=== PATIENT | female | born 1945 | race Caucasian/White ===

== ENCOUNTER 2020-11-02 08:53 | Emergency (ER) | payer OTHER, SELFPAY ==
[2020-11-02 09:24] VITALS: BP 166/109; PULSE 62; RESP 14; TEMP 36.2; O2SAT 98; BMI 33.9
[2020-11-02 09:27] VITALS: O2SAT 97
--- NOTE | 2020-11-02 09:33 | XR_ITS ---
WS: [id number] Left knee, 3 views, 11/02/2020 Clinical Data: injury Comparison: None. Findings: No fractures or dislocations are seen. There is medial joint compartment narrowing with small spurs o f the medial femoral condyle and medial tibial plateau.. The patella shows mild posterior irregularit y. The soft tissues are unremarkable. 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 Kellgren-Arvin Classification: grade 2 (minimal): definite osteophytes and p ossible joint space narrowing
--- NOTE | 2020-11-02 10:34 | W.ED.EXTPRO ---
HPI - Extremity Problem General: Chief complaint: Extremity Injury, Lower Stated complaint: Fall,L knee pain Time Seen by Provider: 11/02/20 09:24 Source: patient Mode of arrival: ambulatory Limitations: no limitations History of Present Illness: HPI Narrative: 75 yo female patient presents to ER with left knee pain. Pt states she was here at hospital picking up and tripped and landed on her left knee. Pt states she has some minor pain but wanted to have it checked while here. pt did not hit head or fall to ground. pt is not on blood thinners. Associated symptoms: Deny chest pain, fever(s) or rash Review of Systems Const: Denies: fever(s), chills, body aches, change in appetite, change in weight, fatigue, malaise or diaphoresis Eyes: Denies: change in vision, blurry vision, blind spots, photophobia, eye discomfort, eye discharge, eye redness, floaters or seeing flashes ENMT: Denies: throat pain, uvular edema, enlarged tonsils, odynophagia, hoarseness, mouth pain, swelling of lips/tongue, oral sores, bleeding gums, dental pain, dry mouth, ear or mastoid pain, ear discharge, change in hearing, tinnitus, disequilibrium, nasal discharge, nasal congestion, post nasal drip or sinus pain Card: Denies: chest pain, palpitations, irregular heart rhythm, edema, swelling of feet/ankles, lightheadedness, syncope, pre-syncope, dyspnea on exertion, orthopnea, leg pain with exertion or acrocyanosis Resp: Denies: dyspnea, productive cough, non-productive cough, wheezing, stridor, pain on inspiration, change in phlegm color, hemoptysis or chest congestion GI: Denies: abdominal pain, nausea, vomiting, hematemesis, dysphagia, diarrhea, constipation, GI cramping, change in bowel habits or rectal pain : Denies: flank pain, difficulty voiding, dysuria, urinary frequency, urinary urgency, urinary hesitancy or hematuria Musc: Reports: extremity pain; Denies: neck pain, back pain, extremity swelling, joint pain, joint swelling, joint redness, joint warmth or deformity Skin/Breast: Denies: rash, pruritus, erythema, sores, new lesions, changes in skin color or dry skin Neuro: Denies: headache(s), numbness in extremities, weakness in extremities, sensory changes, lack of coordination, difficulty walking, frequent falls, dizziness, vertigo, confusion, behavioral changes, Slurred speech present, difficulty communicating thoughts or seizure-like activity Psych: Denies: anxiety, depression, suicidal ideation or homicidal ideation Endo: Denies: polyuria, polydipsia, tired all the time, cold intolerance, excessive sweating, flushing, hot flashes or heat intolerance Harsh/Lymph: Denies: easy bruising, easy bleeding, petechiae, purpura, enlarged lymph nodes or tender lymph nodes All/Imm: Denies: urticaria, throat swelling, tongue swelling, facial swelling, acute wheezing or itchy eyes Physical Exam Const: COMMON NORMALS: no acute distress, average body habitus, patient oriented x3, no limitations, healthy appearing, alert and well nourished HENMT: COMMON NORMALS: normocephalic and atraumatic HEAD & SCALP: normocephalic and atraumatic THROAT: no uvular edema Eye: COMMON NORMALS: Equal, round and reactive pupils present and EOMs intact bilaterally PUPIL: Yes Equal, round and reactive pupils present Neck/C-Spine: COMMON NORMALS: full ROM and no JVD GENERAL: Yes normal visual inspection and Yes trachea midline CERVICAL SPINE: Yes cervical ROM normal Cardio: COMMON NORMALS: no JVD, regular rate and regular rhythm RATE: regular rate RHYTHM: regular rhythm Extremity: COMMON NORMALS: normal to inspection, full ROM, capillary refill normal, no joint enlargement, no clubbing, cyanosis or edema, no calf tenderness and no pedal edema LEFT LOWER EXTREMITY: Yes knee joint Left knee: Yes inspection and Yes neurovascular exam (NVI distally with no calf tenderness) Neuro: COMMON NORMALS: patient oriented x3 SENSORIUM/ORIENTATION: Yes alert Course Vital Signs: Vital signs: Vital Signs Temperature 97.2 F L 11/02/20 09:24 Pulse Rate 62 11/02/20 09:24 Respiratory Rate 14 11/02/20 09:24 Blood Pressure 166/109 11/02/20 09:24 Pulse Oximetry 97 11/02/20 09:27 MDM - Extremity (Nontraumatic) MDM Narrative: Medical decision making narrative: Pt is well appearing non toxic and in no acute distress. Pt xray reveals no acute fracture or dislocation. Pt is NVI distally. Pt placed in lauro wrap and advised to follow up with PCP in 2 weeks if no improvement for possible MRI. Pt did not want anything for pain Discharge Plan Discharge Patient Disposition: Home Clinical Impression: Acute knee pain Qualifiers: Laterality: left Qualified Code(s): M25.562 - Pain in left knee Condition: Stable Discharge Orders: Discharge ED (Routine); Ordered 11/02/20 Ordered By: Noemi Acosta Referrals: Dat Murillo MD [Primary Care Provider] - Discharge Diet: Advance as tolerated Discharge Activity: Increase activity as tolerated Patient Instructions: Opioid Safety Activity Restrictions/Additional Instructions: Please return to the ER with any worsening of pain or any other concerning symptoms. If no improvement follow up with PCP in 2 weeks for possible MRI. Wear lauro wrap as needed Coding Level of Care Code ED Neurophysiologist for Linda Michaud
== END 2020-11-02 10:45 | disposition home or self-care (01) ==
PROVIDERS: Emergency Provider Registered Nurse; PCP Internal Medicine
DX: M25.562 Pain in left knee (principal)
CPT/HCPCS: 73562; 99282

== ENCOUNTER → 2024-01-22 15:37 | Outpatient (BNVA) | payer MEDICARE, OTHER, SELFPAY | PROVIDERS: PCP Internal Medicine; Visit Provider Family Medicine | DX: J02.9 Acute pharyngitis, unspecified (principal); R05.9 Cough, unspecified | CPT/HCPCS: 87071; 87426; 87880 ==

== ENCOUNTER 2024-01-28 04:15 | Emergency (ER) | payer MEDICARE, OTHER, SELFPAY ==
--- NOTE | 2024-01-28 04:24 | ECG_ITS ---
[facility] Test Date: 2024-01-28 Pat Name: Christine Kimble Department: Room: Gender: Female Director Occupational: : 1945 Requested By: Binh Mueller Order Number: [id number] Jeimy MD: Ck Dubois M.D. Measurements Intervals Empire Rate: 58 P: 67 TN: 157 QRS: 91 QRSD: 132 T: 55 QT: 440 QTc: 435 Interpretive Statements SINUS BRADYCARDIA RIGHT BUNDLE BRANCH BLOCK [120+ ms QRS DURATION, UPRIGHT V1, 40+ ms S IN I/aVL/V4/V5/V6] Compared to ECG 05/07/2017 10:41:40 No significant changes Electronically Signed On 01-28-2024 7:56:36 CDT by Ck Dubois M.D. [id number]
[2024-01-28 04:28] VITALS: BP 242/85; PULSE 58; RESP 18; TEMP 36.5; O2SAT 95; BMI 31.0
--- NOTE | 2024-01-28 04:37 | XRR_ITS ---
PROCEDURE INFORMATION: Exam: XR Chest Exam date and time: 01/28/2024 4:54 AM Age: 78 years old Clinical indication: Shortness of breath; Additional info: SOB TECHNIQUE: Imaging protocol: Radiologic exam of the chest. Views: 1 view. COMPARISON: CR XR chest 2V* [id number] 10/25/2018 9:44 AM FINDINGS: Lungs: Unremarkable. No consolidation. Pleural spaces: Unremarkable. No pleural effusion. No pneumothorax. Heart/Mediastinum: Unremarkable. No cardiomegaly. Bones/joints: Unremarkable. XR/XR chest 1V portable [id number] IMPRESSION: No acute findings.
[2024-01-28 04:39] VITALS: BP 224/114; PULSE 62; RESP 20; O2SAT 94
[2024-01-28 04:53] VITALS: BP 234/103
[2024-01-28] MEDS: cloNIDine 0.1 mg Tablet 0.2 MG PO (04:53)
--- NOTE | 2024-01-28 04:55 | ED_ITS ---
Documented by User: Binh Mueller DO 01/28/24 04:57 HPI - SOB/Dyspnea 2 General: Chief Complaint: Upper Respiratory Infection Stated Complaint: cough SOB cant sleep Time Seen by Provider: 01/28/24 04:27 History of Present Illness: HPI Narrative: Patient presents to the ER with a croupy cough and shortness of breath. She had a croupy cough ever since 01/18/2024 patient said she was seen at a clinic and they are diagnosed with an ear infection and had a sore throat placed on a Z-Indio and cough syrup. She said she was getting better while on a Z-Indio but after she finished that she started wheezing and coughing up phlegm. Patient says she is having a hard time sleeping especially lying flat due to all the excess phlegm. Upon arrival patient saturation was 95% on room air. Patient appeared in no acute distress and nontoxic. However her blood pressure was 242/85. Related Data Previous Rx's Medication Instructions Recorded azithromycin 250 mg tablet See Rx Instructions PO .COMPLEX #6 01/22/24 (Zithromax Z-Indio) tabs promethazine-DM 6.25 mg-15 mg/5 mL 5 ml PO Q6H PRN cough #160 mL 01/22/24 oral syrup dexamethasone 6 mg tablet 6 mg PO DAILY 5 days #5 tabs 01/28/24 doxycycline hyclate 100 mg capsule 100 mg PO BID 7 days #14 caps 01/28/24 Allergies Allergy/AdvReac Type Severity Reaction Status Date / Time Penicillins Allergy ALGY-Rash Verified 01/22/24 14:44 Review of Systems 2 General: Reports: 10 or more systems reviewed and unremarkable except in HPI and below PFSH ED 2 PFSH: Social History Smoking and tobacco/nicotine status: never used tobacco/nicotine Physical Exam 2 Const: COMMON NORMALS: no acute distress, average body habitus, patient oriented x3, no limitations, healthy appearing, alert and well nourished HENMT: COMMON NORMALS: normocephalic, atraumatic, hearing grossly normal bilaterally, external ears normal, Normal external nose present and moist oral mucous membranes HEAD & SCALP: normocephalic and atraumatic NOSE: Normal external nose present EXTERNAL EAR: Yes external ears normal Neck/C-Spine: COMMON NORMALS: no JVD Chest: COMMONS NORMALS: normal inspection of the chest and normal palpation of entire chest wall Resp: COMMON NORMALS: normal respiratory effort, No retractions and No use of accessory muscles; negative for clear to auscultation bilaterally (Right side clear to auscultation bilaterally left side mild rhonchi and whe) AUSCULTATION: not clear to auscultation bilaterally (Right side clear to auscultation bilaterally left side mild rhonchi and whe) Cardio: COMMON NORMALS: no JVD, regular rate, regular rhythm, S1 normal heart sound present, S2 normal heart sound present, No gallops present (Cardio), No clicks present (Cardio), No murmurs present (Cardio) and No rub (Cardio) R ATE: regular rate RHYTHM: regular rhythm HEART SOUNDS: S1 normal heart sound present and S2 normal heart sound present GI: COMMON NORMALS: Normal to inspection, nondistended, normoactive bowel sounds present, Soft to palpation, non-tender, No hepatosplenomegaly present and no masses PALPATION: Yes Soft to palpation and Yes No hepatosplenomegaly present Neuro: COMMON NORMALS: patient oriented x3 SENSORIUM/ORIENTATION: Yes alert Course 2 Vital Signs: Vital signs: Vital Signs Temperature 97.7 F 01/28/24 04:28 Pulse Rate 58 L 01/28/24 05:53 Respiratory Rate 17 01/28/24 05:53 Blood Pressure 164/103 01/28/24 05:53 Pulse Oximetry 90 01/28/24 05:53 Oxygen Delivery Me thod Room Air 01/28/24 05:53 MDM - SOB/Dyspnea Medical Records I reviewed the patient's medical records. Lab Data I reviewed the patient's lab results. 01/28/24 05:07 01/28/24 05:07 Labs/Radiology: Laboratory Results WBC 5.40 10^3/uL (3.29-11.43) 01/28/24 05:07 RBC 4.48 10^6/uL (3.85-5.65) 01/28/24 05:07 Hgb 12.90 g/dL (11.27-16.99) 01/28/24 05:07 Hct 41.6 % (36-47) 01/28/24 05:07 MCV 92.9 fl (85-98) 01/28/24 05:07 MCH 28.8 pg (27-33) 01/28/24 05:07 MCHC 31.0 g/dL (30-55) 01/28/24 05:07 RDW 13.9 % (12.1-15.1) 01/28/24 05:07 Plt Count 279 10^3/cmm (157-399) 01/28/24 05:07 MPV 10.0 fL (7.4-10.4) 01/28/24 05:07 Neut % (Auto) 47.7 % 01/28/24 05:07 Lymph % (Auto) 37.6 % 01/28/24 05:07 Drew % (Auto) 9.3 % 01/28/24 05:07 Eos % (Auto) 4.1 % 01/28/24 05:07 Baso % (Auto) 1.1 % 01/28/24 05:07 Neut # (Auto) 2.58 10^3/uL (1.8-7.7) 01/28/24 05:07 Lymph # (Auto) 2.0 10^3/uL (0.8-4.8) 01/28/24 05:07 Drew # (Auto) 0.5 10^3/uL (0.2-0.9) 01/28/24 05:07 Eos # (Auto) 0.2 10^3/uL (0.0-0.8) 01/28/24 05:07 Baso # (Auto) 0.1 10^3/uL (0.0-0.1) 01/28/24 05:07 Nucleated RBC % (auto) 0 % 01/28/24 05:07 Nucleated RBCs # 0.0 /100WBC 01/28/24 05:07 Sodium 142 mmol/L (136-145) 01/28/24 05:07 Potassium 4.5 mmol/L (3.5-5.1) 01/28/24 05:07 Chloride 105 mmol/L (98-107) 01/28/24 05:07 Carbon Dioxide 28 mmol/L (22-29) 01/28/24 05:07 Anion Gap 13.5 (5-19) 01/28/24 05:07 BUN 19 mg/dL (8-23) 01/28/24 05:07 Creatinine 0.7 mg/dL (0.5-0.9) 01/28/24 05:07 GFR Calculation Not Reportable 01/28/24 05:07 Glucose 98 mg/dL (65-115) 01/28/24 05:07 Calculated Osmolality 296 mOsm/kg (285-295) H 01/28/24 05:07 Calcium 9.6 mg/dL (8.5-10.5) 01/28/24 05:07 Total Bilirubin 0.2 mg/dL (0.15-1.2) 01/28/24 05:07 AST 16 U/L (0-32) 01/28/24 05:07 ALT 14 U/L (0-33) 01/28/24 05:07 Alkaline Phosphatase 92 U/L (35-105) 01/28/24 05:07 NT-Pro-B Natriuret Pep 153 pg/mL (0-450) 01/28/24 05:07 Total Protein 6.6 g/dL (6.6-8.7) 01/28/24 05:07 Albumin 4.3 g/dL (3.5-5.2) 01/28/24 05:07 Globulin 2.3 g/dL (1.3-4.6) 01/28/24 05:07 Procalcitonin 0.04 ng/mL (0-0.5) 01/28/24 05:07 Coronavirus (PCR) Negative (Negative) 01/28/24 04:35 Influenza A (PCR) Negative (Negative) 01/28/24 04:35 Influenza Type B (PCR) Negative (Negative) 01/28/24 04:35 RSV (PCR) Negative (Negative) 01/28/24 04:35 All radiology interpretation(s) finalized by discharge Discharge Plan Discharge Patient Disposition: Home Clinical Impression: Upper respiratory infection, Accelerated hypertension Condition: Stable Prescriptions: New doxycycline hyclate 100 mg capsule 100 mg PO BID 7 Days Qty: 14 0RF dexamethasone 6 mg tablet 6 mg PO DAILY 5 Days Qty: 5 0RF No Action azithromycin [Zithromax Z-Indio] 250 mg tablet See Rx Instructions PO .COMPLEX Qty: 6 0RF Rx Instructions: take 500 mg today (day 1), then 250 mg for 4 days (days 2-5) PO promethazine-DM 6.25-15 mg/5 mL syrup 5 ml PO Q6H PRN (Reason: cough) Qty: 160 0RF Discharge Orders: Discharge ED (Routine); Ordered 01/28/24 Ordered By: Misty Everett Referrals: Dat Murillo MD [Primary Care Provider] - Discharge Diet: Usual diet Discharge Activity: Increase activity as tolerated Patient Instructions: Upper Respiratory Infection (ED) Activity Restrictions/Additional Instructions: Thank you for choosing [facility] for your healthcare needs today. Please realize this is an emergency room and that we are providing you with a medical screening exam and this may not be complete and all inclusive of all the testing and or work up that you may need to determine your ailment or severity of your illness. You have been screened and evaluated and felt safe for discharge. Health conditions do change or evolve sometimes and as such it is important that you follow up with your Primary Doctor to be re checked, 3-5 days is a general good time frame for follow up. You are always welcome to return to the ED for re assessment if your symptoms are worsening or you have new concerns Coding Level of Care Code ED Rivet Spinner for Chg Fwd Documented by User: Misty Everett MD 01/28/24 06:09 HPI - SOB/Dyspnea 2 General: Chief Complaint: Upper Respiratory Infection Stated Complaint: cough SOB cant sleep Time Seen by Provider: 01/28/24 04:27 Related Data Previous Rx's Medication Instructions Recorded azithromycin 250 mg tablet See Rx Instructions PO .COMPLEX #6 01/22/24 (Zithromax Z-Indio) tabs promethazine-DM 6.25 mg-15 mg/5 mL 5 ml PO Q6H PRN cough #160 mL 01/22/24 oral syrup dexamethasone 6 mg tablet 6 mg PO DAILY 5 days #5 tabs 01/28/24 doxycycline hyclate 100 mg capsule 100 mg PO BID 7 days #14 caps 01/28/24 Allergies Allergy/AdvReac Type Severity Reaction Status Date / Time Penicillins Allergy ALGY-Rash Verified 01/22/24 14:44 [facility] ED 2 PFS: Social History Smoking and tobacco/nicotine status: never used tobacco/nicotine Course 2 Vital Signs: Vital signs: Vital Signs Temperature 97.7 F 01/28/24 04:28 Pulse Rate 58 L 01/28/24 05:53 Respiratory Rate 17 01/28/24 05:53 Blood Pressure 164/103 01/28/24 05:53 Pulse Oximetry 90 01/28/24 05:53 Oxygen Delivery Me thod Room Air 01/28/24 05:53 MDM - SOB/Dyspnea Medical Decision Making Patient care transferred to my care at shift change. Metabolic panel was pending. Differential diagnosis for patient with shortness of breath includes but is not limited to and based on the above HPI, review of systems and physical exam: Pneumonia. Bronchitis. Asthma or COPD with acute exacerbation. Acute coronary syndrome / HI. Pulmonary embolism. Anxiety. Congestive heart failure. Viral infections including influenza and Covid-19. Atrial fibrillation. Anxiety. Pleural effusion. Pneumothorax. Workup: Lab work, chest X-ray and EKG ordered to evaluate, rule in and rule out above pathologies Chest x-ray: No acute process. No infiltrate. No pneumothorax. This was reviewed and interpreted by myself the ER physician. EKG: Time 4:24 AM. Rate 58. Sinus bradycardia, No ST-T changes, no ectopy, right bundle branch block, This was reviewed and interpreted by the ER physician at 4:30 AM. Lab Review: Laboratory results were reviewed and interpreted by myself the emergency room physician. Lab work is unremarkable. No leukocytosis. No anemia. No renal failure. Sodium is normal. Respiratory panel is negative. Assessment and plan: Upper respiratory infection Accelerated hypertension ? IV doxycycline and IV Decadron in the emergency room. ?Blood pressure has improved. - Discharged home - Discussed findings and plan with patient. Answered any questions. - All laboratory values were reviewed and interpreted personally by myself, the ER physician - All imaging was reviewed and interpreted personally by myself, the ER physician. - Evaluation and treatment of this problem were appropriate in the emergency setting Lab Data 01/28/24 05:07 01/28/24 05:07 Labs/Radiology: Laboratory Results WBC 5.40 10^3/uL (3.29-11.43) 01/28/24 05:07 RBC 4.48 10^6/uL (3.85-5.65) 01/28/24 05:07 Hgb 12.90 g/dL (11.27-16.99) 01/28/24 05:07 Hct 41.6 % (36-47) 01/28/24 05:07 MCV 92.9 fl (85-98) 01/28/24 05:07 MCH 28.8 pg (27-33) 01/28/24 05:07 MCHC 31.0 g/dL (30-55) 01/28/24 05:07 RDW 13.9 % (12.1-15.1) 01/28/24 05:07 Plt Count 279 10^3/cmm (157-399) 01/28/24 05:07 MPV 10.0 fL (7.4-10.4) 01/28/24 05:07 Neut % (Auto) 47.7 % 01/28/24 05:07 Lymph % (Auto) 37.6 % 01/28/24 05:07 Drew % (Auto) 9.3 % 01/28/24 05:07 Eos % (Auto) 4.1 % 01/28/24 05:07 Baso % (Auto) 1.1 % 01/28/24 05:07 Neut # (Auto) 2.58 10^3/uL (1.8-7.7) 01/28/24 05:07 Lymph # (Auto) 2.0 10^3/uL (0.8-4.8) 01/28/24 05:07 Drew # (Auto) 0.5 10^3/uL (0.2-0.9) 01/28/24 05:07 Eos # (Auto) 0.2 10^3/uL (0.0-0.8) 01/28/24 05:07 Baso # (Auto) 0.1 10^3/uL (0.0-0.1) 01/28/24 05:07 Nucleated RBC % (auto) 0 % 01/28/24 05:07 Nucleated RBCs # 0.0 /100WBC 01/28/24 05:07 Sodium 142 mmol/L (136-145) 01/28/24 05:07 Potassium 4.5 mmol/L (3.5-5.1) 01/28/24 05:07 Chloride 105 mmol/L (98-107) 01/28/24 05:07 Carbon Dioxide 28 mmol/L (22-29) 01/28/24 05:07 Anion Gap 13.5 (5-19) 01/28/24 05:07 BUN 19 mg/dL (8-23) 01/28/24 05:07 Creatinine 0.7 mg/dL (0.5-0.9) 01/28/24 05:07 GFR Calculation Not Reportable 01/28/24 05:07 Glucose 98 mg/dL (65-115) 01/28/24 05:07 Calculated Osmolality 296 mOsm/kg (285-295) H 01/28/24 05:07 Calcium 9.6 mg/dL (8.5-10.5) 01/28/24 05:07 Total Bilirubin 0.2 mg/dL (0.15-1.2) 01/28/24 05:07 AST 16 U/L (0-32) 01/28/24 05:07 ALT 14 U/L (0-33) 01/28/24 05:07 Alkaline Phosphatase 92 U/L (35-105) 01/28/24 05:07 NT-Pro-B Natriuret Pep 153 pg/mL (0-450) 01/28/24 05:07 Total Protein 6.6 g/dL (6.6-8.7) 01/28/24 05:07 Albumin 4.3 g/dL (3.5-5.2) 01/28/24 05:07 Globulin 2.3 g/dL (1.3-4.6) 01/28/24 05:07 Procalcitonin 0.04 ng/mL (0-0.5) 01/28/24 05:07 Coronavirus (PCR) Negative (Negative) 01/28/24 04:35 Influenza A (PCR) Negative (Negative) 01/28/24 04:35 Influenza Type B (PCR) Negative (Negative) 01/28/24 04:35 RSV (PCR) Negative (Negative) 01/28/24 04:35 Discharge Plan Discharge Patient Disposition: Home Clinical Impression: Upper respiratory infection, Accelerated hypertension Condition: Stable Prescriptions: New doxycycline hyclate 100 mg capsule 100 mg PO BID 7 Days Qty: 14 0RF dexamethasone 6 mg tablet 6 mg PO DAILY 5 Days Qty: 5 0RF No Action azithromycin [Zithromax Z-Indio] 250 mg tablet See Rx Instructions PO .COMPLEX Qty: 6 0RF Rx Instructions: take 500 mg today (day 1), then 250 mg for 4 days (days 2-5) PO promethazine-DM 6.25-15 mg/5 mL syrup 5 ml PO Q6H PRN (Reason: cough) Qty: 160 0RF Discharge Orders: Discharge ED (Routine); Ordered 01/28/24 Ordered By: Misty Everett Referrals: Dat Murillo MD [Primary Care Provider] - Discharge Diet: Usual diet Discharge Activity: Increase activity as tolerated Patient Instructions: Upper Respiratory Infection (ED) Activity Restrictions/Additional Instructions: Thank you for choosing [facility] for your healthcare needs today. Please realize this is an emergency room and that we are providing you with a medical screening exam and this may not be complete and all inclusive of all the testing and or work up that you may need to determine your ailment or severity of your illness. You have been screened and evaluated and felt safe for discharge. Health conditions do change or evolve sometimes and as such it is important that you follow up with your Primary Doctor to be re checked, 3-5 days is a general good time frame for follow up. You are always welcome to return to the ED for re assessment if your symptoms are worsening or you have new concerns Coding Level of Care Code ED Rivet Spinner for Linda Michaud
[2024-01-28 05:12] LABS: Basophils # 0.1 10^3/uL (0.0-0.1); Basophils % 1.1 %; Eosinophils # 0.2 10^3/uL (0.0-0.8); Eosinophils % 4.1 %; Hematocrit 41.6 % (36-47); Lymphocytes % 37.6 %; Mean Corpuscular Hemoglobin 28.8 pg (27-33); Mean Corpuscular Volume 92.9 fl (85-98); Monocytes # 0.5 10^3/uL (0.2-0.9); Monocytes % 9.3 %; Neutrophils # 2.58 10^3/uL (1.8-7.7); Neutrophils % 47.7 %; Nucleated Red Blood Cells % 0 %; Platelet Count 279 10^3/cmm (157-399); Red Blood Count 4.48 10^6/uL (3.85-5.65); Red Cell Distribution Width 13.9 % (12.1-15.1)
[2024-01-28 05:13] VITALS: PULSE 56; RESP 16; O2SAT 97
[2024-01-28] MEDS: ipratropium-albuterol 3 mL Neb INHALATION (05:13)
[2024-01-28 05:31] LABS: Covid PCR NEGATIVE (Negative); Influenza A NEGATIVE (Negative); Influenza B NEGATIVE (Negative); Respiratory Syncytial Virus Ce NEGATIVE (Negative)
[2024-01-28 05:44] LABS: NT Pro B Type Natriuretic Pept 153 pg/mL (0-450); Procalcitonin 0.04 ng/mL (0-0.5)
[2024-01-28 05:53] VITALS: BP 164/103; PULSE 58; RESP 17; O2SAT 90
[2024-01-28 05:55] LABS: Alanine Aminotransferase 14 U/L (0-33); Albumin Level 4.3 g/dL (3.5-5.2); Alkaline Phosphatase 92 U/L (35-105); Anion Gap 13.5 (5-19); Aspartate Amino Transferase 16 U/L (0-32); Blood Urea Nitrogen 19 mg/dL (8-23); Calcium 9.6 mg/dL (8.5-10.5); Carbon Dioxide 28 mmol/L (22-29); Chloride 105 mmol/L (98-107); Creatinine Clr Calc Pharmacy 52.2005; Globulin 2.3 g/dL (1.3-4.6); Glucose 98 mg/dL (65-115); Osmolality Calculated 296 mOsm/kg (285-295); Potassium 4.5 mmol/L (3.5-5.1); Sodium 142 mmol/L (136-145); Total Bilirubin 0.2 mg/dL (0.15-1.2); Total Protein 6.6 g/dL (6.6-8.7)
[2024-01-28] MEDS: dexamethasone 10 mg/mL INJ IVP (06:17)
[2024-01-28] MEDS: doxycycline 100 mg Tablet PO (06:17)
[2024-01-28 06:25] VITALS: BP 159/73; PULSE 58; RESP 16; O2SAT 92
== END 2024-01-28 06:40 | disposition home or self-care (01) ==
PROVIDERS: Emergency Medicine; Emergency Provider Emergency Medicine; PCP Internal Medicine
DX: J06.9 Acute upper respiratory infection, unspecified (principal); I10 Essential (primary) hypertension
CPT/HCPCS: 0241U; 36415; 71045; 80053; 83880; 84145; 85025; 93005; 94640; 96374; 99285; J1100

== ENCOUNTER 2025-04-30 22:59 | Emergency (ER) | payer MEDICARE, OTHER, SELFPAY ==
--- OUTSIDE RECORDS SUMMARY | 2024-06-18 05:30 | XMS_ITS ---
Author Organization [facility] Address [address] [place] [address] Care Team Providers Care Blending Kettle Tender Name Role Phone Dat Murillo MD Primary Care Provider Unavail able RYNE ALEXANDRE, HILARIO Unavailable Unavailable Tamera Enriquez Unavailable [phone] REASON FOR VISIT 3 YRS/EXAM Encounters Encounter Location Date Provider Diagnosis [address] [place] [address] 06/18/2024 Tamera Enriquez Plan Of Treatment Next Appt Details Provider Name:Tamera Torre ers, 07/26/2025 03:00:00 PM, [address] [place] [address] [address], [place], [address], Progress Notes * Christine SOUTH PDOB:1945 (79 yo F)Acc No.[id number]:06/18/2024 Patient: Albert shin Christine Yoon Provider: Alejandra Enriquez MD :1945 A ge:79 Y S ex:Female Date:06/18/2024 [address] [phone] Pcp:Dat Murillo MD Subjective: * Chief Complaints: * 3 YRS/EXAM * Electronic signature of Ca Enriquez MD on 04/30/2025 at 11:31 PM BIT SANDER Sign off status: Pending * Provider: Alejandra Enriquez MD Date: 0 06/18/2024 Generated for Printi ng/Giana/eTransmitting on: 1 07/01/2024 11:31 PM BIT SANDER
[2025-04-30 23:06] VITALS: BP 202/83; PULSE 82; RESP 16; TEMP 36.6; O2SAT 97; BMI 30.2
--- OUTSIDE RECORDS SUMMARY | 2025-04-30 23:32 | XMS_ITS | Patient Health Record ---
Author Organization [facility] Address [address] [place] [address] Care Team Providers Care Assistant Professor Of Physics Name Role Phone Dat Murillo MD Primary Care Provider Unavail able RYNE ALEXANDRE, HILARIO Unavailable Unavailable Zoe Tamera Unavailable [phone] Coby Pablo Unavailable [phone] Allergies Allergen (clinical drug ingredient) Drug/Non Drug Allergy documented on EMR Reaction Allergy Type Onset Date Status Substance with penicillin structure and antibacterial mechanism of action (substance) Penicillins Unknown Drug Allergy Active Reason For Referral No Information Medications Medication SIG (Take, Route, Frequency, Duration) Notes Start Date End Date Status MoviPrep 100 GM Solution Reconstituted as directed Orally once; Duration: 1 day 07/06/2020 Not-Taking Lisinopril 10 MG Tablet TAKE 1 TABLET BY MOUTH ONCE DAILY Oral; Duration: 30 Not-Taking Ibuprofen 200 MG Tablet 1 tablet with fo od or milk as needed Orally Three times a day PRN: rare Active Estradiol 0.1 MG/GM Cream 1 g Vaginal Two times a Week; Duration: 90 days 07/26/2023 Active Immunizations Vaccine Route Administration Date Status Comme nts COVID-19 Vaccine (Moderna) Dose #1 Unknown 08/01/2020 Administered COVID-19 Vaccine (Moderna) Dose #2 Unknown 08/29/2020 Administered Flucelvax Quadrivalent Pres Free IM Intramuscular 03/02/2021 Administered Influenza (whole), CPT 66601 Inactive Unknown 02/11/2012 Administered Influenza (whole), CPT 34258 Inactive Unknown 02/11/2016 Administered Influenza (whole), CPT 42162 Inactive Unknown 02/10/2017 Administered Influenza (whole), CPT 11015 Inactive Unknown 02/11/2017 Administered Influenza (whole), CPT 03090 Inactive Unknown 02/25/2018 Administered Influenza (whole), CPT 00147 Inactive Unknown 02/10/2019 Administered Influenza (whole), CPT 30120 Inactive Unknown 02/18/2019 Administered Pneumovax 23 Unknown 02/25/2019 Administered Social History Tobacco Use: Social History Observation Description Date Details (start date - stop date) Never Smoker NA - NA Social History Depression Screening Social Info Question Answer Notes PHQ-9 Little interest or pleasure in doing thin gs Not at all Feeling down, depressed, or hopeless Not at all Trouble falling or staying asleep, or sleeping t oo much Not at all Feeling tired or having little energy Not at all Poor appetite or overeating Not at all Feeling bad about yourself, or that you are a failure, or have let yourself or your family down Not at all Trouble concentrating on thi ngs, such as reading the newspaper or watching television Not at all Moving or speaking so slowly that other people could have noticed. Or the opposite ? being so fidgety or restless that you have been moving around a lot more than usual Not at all Thoughts that you would be b renato off , or of hurting yourself in some way Not at all Total Score 0 Drugs/Alcohol: Social Info Question Answer Notes Alcohol Screen (Audit-C) Did you have a drink containing alcohol in the past year? No Points 0 Interpretation Negative Drugs Have you used drugs other than those for medical reasons in the past 12 months? No Tobacco Use: Social Info Question Answer Notes xTobacco Use/Smoking Are you a nonsmoker Additional Details Category Social Info Options Details Drugs/Alcohol: Do you smoke marijuana? De nies Do you drink alcohol? No zzMigrated Social History Migrated Social History Smoking Status:Never smoked tobacco (finding) Section Notes: Negative x3, lives with husb and, safe, denies h/o abuse Negative x3, lives with husb and, safe, denies h/o abuse Negative x3, lives with husb and, safe, denies h/o abuse Negative x3, lives with husb and, safe, denies h/o abuse Negative x3, lives with husb and, safe, denies h/o abuse Negative x3, lives with husb and, safe, denies h/o abuse Negative x3, lives with husb and, safe, denies h/o abuse Negative x3, lives with husb and, safe, denies h/o abuse Negative x3, lives with husb and, safe, denies h/o abuse Negative x3, lives with husb and, safe, denies h/o abuse Negative x3, lives with husb and, safe, denies h/o abuse Negative x3, lives with husb and, safe, denies h/o abuse Negative x3, lives with husb and, safe, denies h/o abuse Problems Problem Type SNOMED Code ICD Code Onset Dates Problem Status W/U Status Risk Notes Problem Age-related osteoporosis (079567791) Age-related osteoporosis without current pathological fracture (M81.0) Active confirmed Problem Obesity (458670630) Obesity (BMI 30-39.9) (E66.9) Active confirmed Problem Atrophy of vagina (085446723) Vaginal atrophy (N95.2) Active confirmed Problem Iron deficiency anemia due to chronic blood loss (289305232) Iron deficiency anemia due to chronic blood loss (D50.0) Active confirmed Problem Pain in female genitalia on intercourse (24223224) Dyspareunia in female (N94.10) Active confirmed Problem Intestinal malabsorption (479633368) Iron malabsorption (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) Active confirmed Problem Acquired iron deficiency anemia due to decreased absorption (529283694) Acquired iron deficiency anemia due to decreased absorption (D50.8) Active confirmed Encounters Encounter Location Date Provider Diagnosis [facility] [address] [place] [address] 11/05/2024 Coby Pablo Plan Of Treatment Next Appt Details Provider Name:Tamera drew, 07/26/2025 03:00:00 PM, [address] [place] [address] [address], [place], [address], Insurance Providers Payer Name Payer Address Payer Phone Subscriber Number Group Number Insured Name Patient Relationship to Insured Coverage Start Date Coverage End Date [place] [address] [place] [phone] [id number] Christine Kimble Self - patient is the insured for Life Secondary to Medicare [address] [place] [address] [id number] Christine Kimble Self - patient is the insured Medical (General) History Medical History History ICD Code Atrophy of vagina Hypercholesterolemia Iron deficiency anemia Obesity Senile osteopenia Spinal stenosis of lumbar region Malabsorption - iron Surgical History Surgery Date(Month/Year) hysterectomy/BSO tonsillectomy Hospitalization History Reason Date(Month/Year) Pt denies recent hospitalizations 2022 Cataract Surgery L and R eye and intraoc ular implant lens 04/2023 Upper and lower GI scope done surgeries
[2025-05-01] VITALS (9 sets, daily range): BP systolic 161–229; BP diastolic 82–103; PULSE 71–86; RESP 16–25; O2SAT 93–99
--- NOTE | 2025-05-01 00:26 | CTR_ITS ---
PROCEDURE INFORMATION: Exam: CT Abdomen And Pelvis With Contrast Exam date and time: 05/01/2025 1:04 AM Age: 79 years old Clinical indication: Nausea and vomiting; Abdominal pain; Localized; Upper abd pain with n/v; Additional info: Upper abd pain, nv TECHNIQUE: Imaging protocol: Computed tomography of the abdomen and pelvis with contrast. Radiation optimization: All CT scans at this facility use at least one of these dose optimization techniques: automated exposure control; mA and/or kV adjustment per patient size (includes targeted exams where dose is matched to clinical indication); or iterative reconstruction. Contrast material: OMNI 350; Contrast volume: 80 ml; Contrast route: INTRAVENOUS (IV); COMPARISON: CR (CHEST, ) 05/01/2025 12:51 AM RADIATION DOSE METRICS: Total DLP (mGy-cm): 1185.66 FINDINGS: Diaphragm: A large hiatal hernia is present without gastric outlet obstruction (however, the entirety of the gastric lumen is incompletely visualized on this exam). Associated basilar atelectasis is seen. Liver: Scattered simple cysts are seen throughout the liver. Gallbladder and biliary ducts: Normal. No calcified stones. No ductal dilation. Pancreas: Normal. No ductal dilation. Spleen: Normal. No splenomegaly. Adrenal glands: Normal. No mass. Kidneys and ureters: Bilateral renal sinus cysts are noted in both kidneys. Simple left renal cysts are present (Bosniak 1). No follow-up required. Stomach and bowel: Otherwise, the large and small bowel are normal in course and caliber without evidence of wall thickening or obstruction. Appendix: No evidence of appendicitis. Intraperitoneal space: Unremarkable. No free air. No significant fluid collection. Vasculature: Mild atherosclerosis of the aorta and its major branching vessels is noted. Lymph nodes: Unremarkable. No enlarged lymph nodes. Urinary bladder: Unremarkable as visualized. Reproductive: The uterus is surgically absent. Bones/joints: Grade 1 retrolisthesis of L3-L4. Grade 1 anterolisthesis of L5-S1. Degenerative joint and disc disease is seen in the imaged spine. Soft tissues: Unremarkable. CT/CT abdomen pelvis w con* [id number] IMPRESSION: 1. Large hiatal hernia without clear evidence of gastric outlet obstruction or volvulus (however, the entirety of the intrathoracic gastric lumen is not visualized on this exam). Correlate with patient history/physical exam. 2. Otherwise, no acute process in the abdomen or pelvis to explain the patient's symptoms. 3. Grade 1 retrolisthesis at L3-L4. 4. Grade 1 anterolisthesis at L5-S1. COMMENTS: Consistent with the [employer]'s Incidental Findings Committee white paper (J Am René Radiol 2018): Any incidental renal lesion less than 1 cm or classified as too small to characterize, or any incidental cystic renal lesion characterized as simple-appearing, is likely benign. No follow-up imaging is recommended for these lesions per consensus recommendations based on imaging criteria.
--- NOTE | 2025-05-01 00:26 | XRR_ITS ---
PROCEDURE INFORMATION: Exam: XR Chest Exam date and time: 05/01/2025 12:51 AM Age: 79 years old Clinical indication: Shortness of breath; Additional info: SOB TECHNIQUE: Imaging protocol: Radiologic exam of the chest. Views: 1 view. COMPARISON: CR XR chest 1V portable [id number] 01/28/2024 4:54 AM FINDINGS: Lungs: Central pulmonary vasculature demonstrates indistinct borders with mild prominence, which may represent a component of pulmonary vascular congestion. No confluent consolidation. Pleural spaces: Unremarkable. No pleural effusion. No pneumothorax. Heart/Mediastinum: Unremarkable. No cardiomegaly. Bones/joints: Unremarkable. XR/XR chest 1V portable [id number] IMPRESSION: Central pulmonary vasculature demonstrates indistinct borders with mild prominence, which may represent a component of pulmonary vascular congestion. No pneumonic consolidations.
--- NOTE | 2025-05-01 00:26 | CTR_ITS ---
PROCEDURE INFORMATION: Exam: CT Head Without Contrast Exam date and time: 05/01/2025 1:01 AM Age: 79 years old Clinical indication: Pain; Headache; DODD with hypertension; Additional info: Sbp>220, no HX, DODD TECHNIQUE: Imaging protocol: Computed tomography of the head without contrast. Radiation optimization: All CT scans at this facility use at least one of these dose optimization techniques: automated exposure control; mA and/or kV adjustment per patient size (includes targeted exams where dose is matched to clinical indication); or iterative reconstruction. COMPARISON: No relevant prior studies available. 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 No significant mass effect upon the atrophic underlying brain. Microangiopathic gliosis noted, without signs of acute infarct. Chronic lacunar infarcts of the bilateral lentiform nuclei, anterior limb left internal capsule, and caudate nuclei. No acute intracranial hemorrhage. Cerebral ventricles: No ventriculomegaly. Paranasal sinuses: Mild left frontoethmoid region paranasal sinus mucosal thickening. Mastoid air cells: Visualized mastoid air cells are well aerated. Bones: Unremarkable. No acute fracture. Soft tissues: Unremarkable. CT/CT head wo con* [id number] IMPRESSION: 1. Generalized atrophy and microangiopathic gliosis with chronic lacunar infarcts of the deep lambert nuclei and deep white matter tracts. No signs of acute intracranial hemorrhage or acute infarct. 2. 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
--- NOTE | 2025-05-01 00:28 | ECG_ITS ---
[facility] Date: 2025-05-01 Pat Name: Christine Kimble Department: Room: Gender: Female Legal Clerk: : [id number] Requested By: Eric Benjamin Order Number: [id number] Reading MD: Measurements Intervals [place] Rate: 72 P: 56 VT: 155 QRS: 46 QRSD: 134 T: 3 QT: 428 QTc: 471 Interpretive Statements SINUS RHYTHM RIGHT BUNDLE BRANCH BLOCK [120+ ms QRS DURATION, UPRIGHT V1, 40+ ms S IN I/aVL/V4/V5/V6] [id number]
[2025-05-01] MEDS: diphenhydrAMINE 50 mg/mL SDV 1mL 12.5 MG IVP (00:57)
[2025-05-01 00:58] LABS: Hematocrit 43.7 % (36-47); Hemoglobin 14.20 g/dL (11.27-16.99); Mean Corpuscular HGB Conc 32.5 g/dL (30-55); Mean Corpuscular Hemoglobin 28.5 pg (27-33); Mean Corpuscular Volume 87.6 fl (85-98); Nucleated Red Blood Cells % 0 %; Platelet Count 289 10^3/cmm (157-399); Red Blood Count 4.99 10^6/uL (3.85-5.65); White Blood Count 9.33 10^3/uL (3.29-11.43)
[2025-05-01] MEDS: iohexol 350 mg/mL 500 mL Btl (per mL) IV (01:05)
--- NOTE | 2025-05-01 01:12 | ED_ITS ---
HPI - Nausea/Vomiting/Diarrhea 2 General: Chief complaint: Nausea/Vomiting/Diarrhea Stated complaint: hasnt eaten in 2 days,says maybe dehydrated Time Seen by Provider: 05/01/25 00:10 History of Present Illness: Patient is a 79-year-old female with a history of iron deficiency anemia and hypertension who presents with several days of persistent nausea and inability to tolerate oral intake, including water, over the past day. She reports episodes of vomiting, feeling hot during emesis followed by chills, and significant fatigue. She denies abdominal pain and diarrhea, but notes a mild headache and a transient episode of speech difficulty and mental fuzziness earlier today. She recently recovered from URI where she was treated with prednisone and azithromycin, with complete resolution of symptoms until three to four days ago when gastrointestinal symptoms began. She denies urinary symptoms, blood loss, and is not currently taking any medications. Associated nausea: Yes Associated symtoms: Reports fatigue and nausea; Denies change in vision, chest pain, headache(s) or palpitations Related Data Home Medications ?Medication ?Instructions ?Recorded ?Confirmed multivitamin 1 tab PO DAILY 04/02/2503/14 Previous Rx's ?Medication ?Instructions ?Recorded albuterol sulfate 90 mcg/actuation 2 puff inhalation Q 6H PRN 04/02/25 aerosol inhaler shortness of breath or wheez ing #8.5 grams ydjidsynhpjftsm-utatyeilhwpduhn-WM 5 ml PO Q6H PRN col d symptoms #118 04/02/25 2 mg-30 mg-10 mg/5 mL oral syrup mL (Bromfed DM) doxycycline hyclate 100 mg tablet 100 mg PO BID 7 days #14 tabs 04/02/25 prednisone 10 mg tablet 10 mg PO DAILY 5 days #5 tab s 04/02/25 amlodipine 5 mg tablet 5 mg PO DAILY #20 tabs 05/01 cephalexin 500 mg capsule 500 mg PO Q12H #10 caps 04/13 ondansetron 4 mg disintegrating 4 mg PO Q8H PRN nausea and 05/01/25 tablet vomiting 4 days #14 tabs Allergies Allergy/AdvReac Type Severity Reaction Status Date / Time Penicillins Allergy ALGY-Rash Verified 01/22/24 14:44 Review of Systems 2 General: Reports: 10 or more systems reviewed and unremarkable except in HPI and below Const: Reports: change in appetite and fatigue; Denies: fever(s) or chills Eyes: Denies: change in vision or eye discharge Card: Denies: chest pain, palpitations or swelling of feet/ankles Resp: Reports: non-productive cough; Denies: dyspnea GI: Reports: abdominal pain and nausea; Denies: diarrhea Musc: Denies: neck pain or back pain Skin/Breast: Denies: rash or jaundice Neuro: Denies: headache(s), numbness in extremities or weakness in extremities Harsh/Lymph: Denies: easy bruising or easy bleeding PFSH ED 2 PFSH: Social History Smoking and tobacco/nicotine status: never used tobacco/nicotine Physical Exam 2 Narrative: EXAM NARRATIVE: Fatigued but afebrile and overall well-appearing, nontoxic, hypertensive but other vital stable, no acute distress. Abdomen mildly distended and mild diffuse tenderness, no localizing or peritonitic signs, bowel sounds increased, no overlying skin changes, no CVA tenderness. Slightly diminished breath sounds but nothing adventitious, breathing comfortably on room air, saturating well, able to speak in full sentences without getting short of breath, no accessory muscle usage, no signs of respiratory distress. Normal sinus rhythm with mild nonpitting edema bilaterally, no erythema. GCS 15, alert and oriented x 4, no nystagmus, moving all 4 extremities symmetrically and spontaneously. Course 2 Vital Signs: Vital signs: Vital Signs Temperature 97.8 F 04/30/25 23:06 Pulse Rate 84 05/01/25 03:47 Respiratory Rate 23 H 05/01/25 03:47 Blood Pressure 163/82 05/01/25 03:47 Pulse Oximetry 96 05/01/25 03:47 Oxygen Delivery Me thod Room Air 04/30/25 23:06 MDM - Nausea/Vomiting/Diarrhea Medical Decision Making -ddx: Gastroenteritis, cystitis, pyelonephritis, intra-abdominal abscess, dehydration, electrolyte abnormality, URI, pneumonia, hypertensive urgency versus emergency, ACS, dysrhythmia - Patient with GI symptoms shortly after finishing azithromycin/steroids for a URI a few days ago, has had decreased p.o. intake, afebrile has been feeling nauseous but no vomiting. Very hypertensive on arrival, apparently on nothing for blood pressure at home, appears mildly anxious. She had an episode of feeling off at home and felt fuzzy for a few seconds but with present and no other FND was noted, will evaluate with abdominal/infectious/cardiac labs, get CT abdomen pelvis and head due to the very high blood pressure and this episode of headaches/slight confusion at home, provide symptom control with Compazine for nausea and headache and reassess - Patient's workup showed a few things, only seemingly has a follow-up appointment once a year with labs drawn and does not follow with specialist but with nothing done here, it is hard to ascertain what is new versus chronic and so discussed all of these things with her including her potential prior CVA with her chronic lacunar infarcts on CT imaging, 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 Her blood pressure started off in the 210s, with labetalol and hydralazine and was lowered to the 160s and did not want to do so anymore in the acute setting. - Her UA was also suggestive of an infection which is probably contributing to her overall fatigue abdominal pain and nausea. - For all of these things for further investigation, offered admission but with her feeling better and her blood pressure were under control her and has been wanted to be discharged home which was seemingly reasonable with things improved and so to best set her up for success, she was started on a 5-day course of Keflex, given Zofran as needed, started on amlodipine with instructions to take her blood pressure at least twice daily and keep a log of it, appointment request placed for cardiology and informed about the surgery clinic in case her nausea and GI intolerance worsens for potential surgical evaluation of her large hiatal hernia, patient and understanding of plan of care and understanding of worsening return precautions, discharged in stable condition. Lab Data 05/01/25 00:49 05/01/25 00:49 Radiology Impressions Abdomen/Pelvis CT 05/01/25 00:26 IMPRESSION: 1. Large hiatal hernia without clear evidence of gastric outlet obstruction or volvulus (however, the entirety of the intrathoracic gastric lumen is not visualized on this exam). Correlate with patient history/physical exam. 2. Otherwise, no acute process in the abdomen or pelvis to explain the patient's symptoms. 3. Grade 1 retrolisthesis at L3-L4. 4. Grade 1 anterolisthesis at L5-S1. COMMENTS: Consistent with the [employer]'s Incidental Findings Committee white paper (J Am René Radiol 2018): Any incidental renal lesion less than 1 cm or classified as too small to characterize, or any incidental cystic renal lesion characterized as simple-appearing, is likely benign. No follow-up imaging is recommended for these lesions per consensus recommendations based on imaging criteria. Chest X-Ray 05/01/25 00:26 IMPRESSION: Central pulmonary vasculature demonstrates indistinct borders with mild prominence, which may represent a component of pulmonary vascular congestion. No pneumonic consolidations. ADDENDUM: 05/01/25 0141 Addendum: Additional retrocardiac opacity, consistent with large hiatal hernia, better characterized on same day CT abdomen and pelvis. Head CT 05/01/25 00:26 IMPRESSION: 1. Generalized atrophy and microangiopathic gliosis with chronic lacunar infarcts of the deep lambert nuclei and deep white matter tracts. No signs of acute intracranial hemorrhage or acute infarct. 2. 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 Laboratory Results WBC 9.33 10^3/uL (3.29-11.43) 05/01/25 00:49 RBC 4.99 10^6/uL (3.85-5.65) 05/01/25 00:49 Hgb 14.20 g/dL (11.27-16.99) 05/01/25 00:49 Hct 43.7 % (36-47) 05/01/25 00:49 MCV 87.6 fl (85-98) 05/01/25 00:49 MCH 28.5 pg (27-33) 05/01/25 00:49 MCHC 32.5 g/dL (30-55) 05/01/25 00:49 RDW 13.9 % (12.1-15.1) 05/01/25 00:49 Plt Count 289 10^3/cmm (157-399) 05/01/25 00:49 MPV 10.0 fL (7.4-10.4) 05/01/25 00:49 Neut % (Auto) 79.2 % 05/01/25 00:49 Lymph % (Auto) 13.2 % 05/01/25 00:49 [place] % (Auto) 6.9 % 05/01/25 00:49 Eos % (Auto) 0.1 % 05/01/25 00:49 Baso % (Auto) 0.4 % 05/01/25 00:49 Neut # (Auto) 7.39 10^3/uL (1.8-7.7) 05/01/25 00:49 Lymph # (Auto) 1.2 10^3/uL (0.8-4.8) 05/01/25 00:49 [place] # (Auto) 0.6 10^3/uL (0.2-0.9) 05/01/25 00:49 Eos # (Auto) 0.0 10^3/uL (0.0-0.8) 05/01/25 00:49 Baso # (Auto) 0.0 10^3/uL (0.0-0.1) 05/01/25 00:49 Nucleated RBC % (auto) 0 % 05/01/25 00:49 Nucleated RBCs # 0.0 /100WBC 05/01/25 00:49 Sodium 138 mmol/L (136-145) 05/01/25 00:49 Potassium 3.8 mmol/L (3.5-5.1) 05/01/25 00:49 Chloride 98 mmol/L (98-107) 05/01/25 00:49 Carbon Dioxide 19 mmol/L (22-29) L 05/01/25 00:49 Anion Gap 24.8 (5-19) H 05/01/25 00:49 BUN 16 mg/dL (8-23) 05/01/25 00:49 Creatinine 0.6 mg/dL (0.5-0.9) 05/01/25 00:49 GFR Calculation Not Reportable 05/01/25 00:49 Glucose 107 mg/dL (65-115) 05/01/25 00:49 Calculated Osmolality 288 mOsm/kg (285-295) 05/01/25 00:49 Lactic Acid 1.6 mmol/L (0.5-2.2) 05/01/25 00:49 Calcium 11.0 mg/dL (8.5-10.5) H 05/01/25 00:49 Magnesium 2.3 mg/dL (1.7-2.3) 05/01/25 00:49 Total Bilirubin 0.6 mg/dL (0.15-1.2) 05/01/25 00:49 AST 22 U/L (0-32) 05/01/25 00:49 ALT 15 U/L (0-33) 05/01/25 00:49 Alkaline Phosphatase 100 U/L (35-105) 05/01/25 00:49 Troponin T Baseline 11 ng/L (0-10) H 05/01/25 00:49 Troponin T 60 Minute 9.91 ng/L (0-10) 05/01/25 01:43 Delta Troponin T -1.09 ABS# (0-10) L 05/01/25 01:43 C-Reactive Protein 3.0 mg/L (0.0-4.9) 05/01/25 00:49 NT-Pro-B Natriuret Pep 349 pg/mL (0-450) 05/01/25 00:49 Total Protein 7.4 g/dL (6.6-8.7) 05/01/25 00:49 Albumin 4.9 g/dL (3.5-5.2) 05/01/25 00:49 Globulin 2.5 g/dL (1.3-4.6) 05/01/25 00:49 Lipase 18 U/L (13-60) 05/01/25 00:49 Procalcitonin 0.05 ng/mL (0-0.5) 05/01/25 00:49 Urine Color Yellow (Yellow) 05/01/25 01:50 Urine Appearance Clear (CLEAR) 05/01/25 01:50 Urine pH 6.5 (5-7) 05/01/25 01:50 Ur Specific [place] 1.031 (1.005-1.030) H 05/01/25 01:50 Urine Protein Negative (Negative) 05/01/25 01:50 Urine Glucose (UA) Negative (Normal) 05/01/25 01:50 Urine Ketones 1+ (Negative) H 05/01/25 01:50 Urine Blood Negative (Negative) 05/01/25 01:50 Urine Nitrate Negative (Negative) 05/01/25 01:50 Urine Bilirubin Negative (Negative) 05/01/25 01:50 Urine Urobilinogen 0.2 mg/dL (Negative) 05/01/25 01:50 Ur Leukocyte Esterase 2+ (Negative) A 05/01/25 01:50 Urine RBC 0-2 /hpf (0-2) 05/01/25 01:50 Urine WBC 21-50 /hpf (0-5) H 05/01/25 01:50 Ur Squamous Epith Cells 0-5 /hpf (0-5) 05/01/25 01:50 Amorphous Sediment Not Reportable 05/01/25 01:50 Urine Bacteria None seen /hpf (NONE) 05/01/25 01:50 Hyaline Casts 0.81 /lpf 05/01/25 01:50 All radiology interpretation(s) finalized by discharge Discharge Plan Discharge Patient Disposition: Home Clinical Impression: Hypertension, Acute UTI, Diastolic dysfunction, Hernia, hiatal Condition: Stable Prescriptions: New cephalexin 500 mg capsule 500 mg PO Q12H Qty: 10 0RF amlodipine 5 mg tablet 5 mg PO DAILY Qty: 20 0RF ondansetron 4 mg tablet,disintegrating 4 mg PO Q8H PRN (Reason: nausea and vomiting) 4 Days Qty: 14 0RF No Action multivitamin Tablet 1 tab PO DAILY prednisone 10 mg tablet 10 mg PO DAILY 5 Days Qty: 5 0RF albuterol sulfate 90 mcg/actuation HFA aerosol inhaler 2 puff inhalation Q6H PRN (Reason: shortness of breath or wheezing) Qty: 8.5 0RF borfsktoonabqbf-eqdfduzsj-NX [Bromfed DM] 2-30-10 mg/5 mL syrup 5 ml PO Q6H PRN (Reason: cold symptoms) Qty: 118 0RF doxycycline hyclate 100 mg tablet 100 mg PO BID 7 Days Qty: 14 0RF Discharge Orders: Discharge ED (Routine); Ordered 05/01/25 Ordered By: Eric Benjamin Referrals: Remy Costa MD [Physician, Cardiology] - 7-10 days Discharge Diet: Advance as tolerated Discharge Activity: Resume usual activity Patient Instructions: Opioid Safety, Pain Management, Patient Portal & Harvinder Instructions Activity Restrictions/Additional Instructions: You were seen for your nausea abdominal pain and headache, you were evaluated with labs, CT scan and x-ray that were ultimately reassuring but found a few things going on today: - You were found to have a urinary tract infection which is probably contributing to some of your nausea and abdominal pain, do treat this, take the Keflex 500 mg twice a day for a total of 5 days, take this with food if possible. - You had a very high blood pressure that required 2 medications to bring it down, this is probably been longstanding because your CAT scan of your head showed probable small areas of stroke in the past. To help with this, it is important for you to take your blood pressure twice a day and to start taking the amlodipine 5 mg daily. For further management of your possible low-grade heart failure, an appointment referral has been made for you at the cardiology clinic, if they do not call you within a week, call the clinic number listed above for further management. - You were found to have a large hiatal hernia which could also cause some nausea, for this, eat small meals that are spaced apart severe stomach does not get overstretched and cause the symptoms, if you keep having issues with digestion, call the surgery clinic listed above for further evaluation. Return to the ED with severe worsening of any of your symptoms, severe abdominal pain, fevers that do not improve with Tylenol, continuous vomiting, any other emergent concerns. Print Language: Iranian Coding Level of Care Code ED [facility] Receiving for Linda Michaud
[2025-05-01 01:17] LABS: Troponin(5th) Baseline 11 ng/L (0-10)
[2025-05-01 01:19] LABS: Lactic Sepsis W/Reflex 1.6 mmol/L (0.5-2.2)
[2025-05-01 01:26] LABS: NT Pro B Type Natriuretic Pept 349 pg/mL (0-450); Procalcitonin 0.05 ng/mL (0-0.5)
[2025-05-01 01:38] LABS: Alanine Aminotransferase 15 U/L (0-33); Albumin Level 4.9 g/dL (3.5-5.2); Alkaline Phosphatase 100 U/L (35-105); Anion Gap 24.8 (5-19); Aspartate Amino Transferase 22 U/L (0-32); Blood Urea Nitrogen 16 mg/dL (8-23); Calcium 11.0 mg/dL (8.5-10.5); Carbon Dioxide 19 mmol/L (22-29); Chloride 98 mmol/L (98-107); Globulin 2.5 g/dL (1.3-4.6); Glucose 107 mg/dL (65-115); Lipase 18 U/L (13-60); Magnesium 2.3 mg/dL (1.7-2.3); Osmolality Calculated 288 mOsm/kg (285-295); Potassium 3.8 mmol/L (3.5-5.1); Sodium 138 mmol/L (136-145); Total Protein 7.4 g/dL (6.6-8.7)
[2025-05-01 02:01] LABS: Glucose Urine UA Negative (Normal); Nitrate Urine Negative (Negative)
[2025-05-01 02:04] LABS: Add Urine Microscopic? YES
[2025-05-01 02:09] LABS: Specific Gravity, Urine 1.031 (1.005-1.030)
[2025-05-01] MEDS: labetalol 5 mg/mL SDV 20mL 10 MG IVP (02:21)
[2025-05-01] MEDS: hyDRALAzine 20 mg/mL INJ 1 mL IVP (03:07)
== END 2025-05-01 03:49 | disposition home or self-care (01) ==
PROVIDERS: Emergency Provider Student in an Organized Health Care Education/Training Program; PCP Internal Medicine
DX: N39.0 Urinary tract infection, site not specified (principal); K44.9 Diaphragmatic hernia without obstruction or gangrene; I51.89 Other ill-defined heart diseases; I10 Essential (primary) hypertension
CPT/HCPCS: 36415; 70450; 71045; 74177; 80053; 81001; 83605; 83690; 83735; 83880; 84145; 84484; 85025; 86140; 87086; 93005; 96361; 96374; 96375; 99285; J0360; J0780; J1200; J3490; J7030; J9999